=== PATIENT | female | born 1985 | race Asian ===

== ENCOUNTER → 2016-06-05 | Outpatient (CLI) | payer OTHER ==
[~2016-06-05] MED LIST: AMLO2.5T PO; CNC/54 PO; CYCL10TA6 PO; METH10TA4 PO
== END | disposition home or self-care (01) ==
LOC: C.PAPS 11:44
PROVIDERS: ATTEND Obstetrics & Gynecology
DX: Z01.419 Encounter for gynecological examination (general) (routine) without abnormal findings (principal)

== ENCOUNTER 2016-06-11 09:48 | Emergency (ER) | payer OTHER ==
[~2016-06-11] VITALS: Ht 154.9 cm; Wt 59.1 kg
[2016-06-11 09:50] VITALS: TEMP 36.9; Ht 154.9 cm; Wt 59.1 kg
--- NOTE | 2016-06-11 10:24 | DIAGNOSTIC IMAGING REPORT ---
CHEST ONE VIEW PORTABLE CLINICAL HISTORY: severe hypertension hypertension COMPARISON STUDY: No previous studies for comparison. FINDINGS: The bones soft tissues and hemidiaphragms are normal. The cardiomediastinal silhouette is normal. The lungs are clear. The pulmonary vasculature is normal. IMPRESSION: Negative chest. Electronically signed by: Phil Toth M.D. 06/11/2016 10:22 AM Dictated Date/Time: 06/11/2016 10:22 AM
[2016-06-11 10:31] VITALS: O2SAT 99
[2016-06-11 10:32] LABS: BASO % 0.2 %; BASO ABS # 0.01 K/uL (0-0.2); HEMATOCRIT 42.5 % (37-47); IG% 0.2 %; LYMPH % 35.4 %; LYMPH ABS # 1.79 K/uL (1.2-3.4); MEAN CELL VOLUME 72.3 fL (80-100); MEAN CORPUSCULAR HEMOGLOBIN 23.3 pg (25-34); MEAN CORPUSCULAR HGB CONC 32.2 g/dl (32-36); MEAN PLATELET VOLUME 9.5 fL (7.4-10.4); MONO % 7.9 %; NEUT % 55.3 %; PLATELET COUNT 317 K/uL (130-400); RED BLOOD COUNT 5.88 M/uL (4.2-5.4); WHITE BLOOD COUNT 5.05 K/uL (4.8-10.8)
[2016-06-11 10:34] LABS: URINE APPEARANCE CLEAR (CLEAR); URINE BILIRUBIN NEG (NEG); URINE COLOR YELLOW; URINE NITRITE NEG (NEG); URINE PH 7.5 (4.5-7.5); URINE SPECIFIC GRAVITY 1.013 (1.000-1.030); UROBILINOGEN NEG (NEG)
[2016-06-11 10:42] LABS: PROTHROMBIN TIME (PATIENT) 11.2 SECONDS (9.0-12.0)
[2016-06-11 10:44] LABS: MANUAL MICROSCOPIC REQUIRED? NO; REVIEW REQ? NO
[2016-06-11 10:46] LABS: ALT/SGPT 56 U/L (12-78); BLOOD UREA NITROGEN 11 mg/dl (7-18); BUN/CREATININE RATIO 14.7 (10-20); CALCIUM 8.3 mg/dl (8.5-10.1); CARBON DIOXIDE 27 mmol/L (21-32); CHLORIDE 101 mmol/L (98-107); CREATININE 0.74 mg/dl (0.60-1.20); GLUCOSE 99 mg/dl (70-99); POTASSIUM 3.4 mmol/L (3.5-5.1); SODIUM 139 mmol/L (136-145)
[2016-06-11] MEDS ORDERED: CNC/54 PO (10:52)
[2016-06-11] MEDS ORDERED: METH10TA4 PO (10:52)
[2016-06-11 10:54] LABS: ANISOCYTOSIS PRESENT; COMPLETE YES; POLYCHROMASIA 1+
[2016-06-11 10:57] LABS: ALKALINE PHOSPHATASE 56 U/L (45-117); AST/SGOT 51 U/L (15-37); CKMB/CK RATIO 0.5 (0-3.0)
[2016-06-11] MEDS ORDERED: AMLO2.5T PO (12:29)
[2016-06-11] MEDS ORDERED: AMLODIPINE BESYLATE 5 MG TAB PO ONE (12:30)
[2016-06-11 13:48] VITALS: BP 163/116; PULSE 92; O2SAT 100
--- NOTE | 2016-06-11 17:34 | EMERGENCY ROOM VISIT NOTE ---
History Report prepared by Xander: Alex Benavides Under the Supervision of: Dr. Dann Davies M.D. First contact with patient: 09:55 Chief Complaint: HYPERTENSION Stated Complaint: ELEVATED BP, VISION SLIGHTLY BLURRY History of Present Illness The patient is a 31 year old female who presents to the Emergency Room with complaints of persistent hypertension starting last week. She went to her [facility] for a routine appointment last week. She was told that she had high blood pressure and she could not be prescribed control. She was told to return the following week. When she went back to the [facility]SE INSPECTOR's office today, she was found to have hypertension again. She called her PCP's office who referred her to the Emergency Room. The patient currently denies any pain. The patient denies any prior history of hypertension. She does not have any family history of high blood pressure. She denies any recent changes in weight. Pt also denies LOC, headache, fevers, chills, diaphoresis, visual changes, neck pain, chest pain, breathing difficulties, nausea, vomiting, abdominal pain, back pain, melena, hematochezia, urinary symptoms, numbness, weakness, lymphadenopathy, rash, or other complaints. Source of History: patient Onset: last week Position: other (global) Symptom Intensity: No pain Quality: other (hypertension) Timing: other (persistent) Review of Systems See HPI for pertinent positives and negatives. A total of ten systems were reviewed and were otherwise negative. Past Medical & Surgical Medical Problems: (1) No Known Active Medical Problems Family History Patient reports no known family medical history. Social History Smoking Status: Never Smoker Marital Status: single Occupation Status: employed Current/Historical Medications Scheduled Amlodipine Besylate (Norvasc), 1 TAB PO DAILY Methylphenidate (Ritalin), 10 MG PO DAILY Methylphenidate Hcl (Concerta), 1 TAB PO QAM Allergies Coded Allergies: No Known Allergies (Unverified , 06/11/16) Physical Exam Vital Signs Date Time Temp Pulse Resp B/P Pulse Ox O2 Delivery O2 Flow Rate FiO2 06/11/16 13:48 92 18 163/116 100 06/11/16 13:17 95 16 150/122 96 Room Air 06/11/16 12:12 89 18 144/120 96 Room Air 06/11/16 11:08 96 06/11/16 11:07 87 20 155/108 99 Room Air 06/11/16 10:31 99 Room Air 06/11/16 10:31 99 Room Air 06/11/16 09:50 36.9 102 18 187/135 99 Room Air Physical Exam GENERAL: Awake, alert, well appearing, no distress HENT: Normocephalic, atraumatic. TM's normal. Oropharynx unremarkable. EYES: PERRL. EOMI. Normal conjunctiva. Sclera non-icteric. NECK: Supple. No nuchal rigidity. FROM. No JVD or bruit. RESPIRATORY: CTA CARDIAC: RRR. No murmur. ABDOMEN: Soft, non distended. No tenderness to palpation. No rebound or guarding. No masses. RECTAL: Deferred. MUSCULOSKELETAL: Unremarkable. No edema. No discoloration. Gross motor strength symmetric. NEURO: Cranial nerves 2-12 grossly intact. Normal sensorium. No sensory or motor deficits noted. Speech normal. No pronator drift. SKIN: No rash or jaundice noted. LYMPH: No adenopathy. Medical Decision & Procedures ER Provider Diagnostic Interpretation: X ray results as stated below per my interpretation and radiologist interpretation. CHEST ONE VIEW PORTABLE CLINICAL HISTORY: severe hypertension hypertension COMPARISON STUDY: No previous studies for comparison. FINDINGS: The bones soft tissues and hemidiaphragms are normal. The cardiomediastinal silhouette is normal. The lungs are clear. The pulmonary vasculature is normal. IMPRESSION: Negative chest. Electronically signed by: Phil Toth M.D. 06/11/2016 10:22 AM Dictated Date/Time: 06/11/2016 10:22 AM Laboratory Results 06/11/16 10:17 Red Blood Count 5.88, Mean Corpuscular Volume 72.3, Mean Corpuscular Hemoglobin 23.3, Mean Corpuscular Hemoglobin Concent 32.2, Mean Platelet Volume 9.5, Neutrophils (%) (Auto) 55.3, Lymphocytes (%) (Auto) 35.4, Monocytes (%) (Auto) 7.9, Eosinophils (%) (Auto) 1.0, Basophils (%) (Auto) 0.2, Neutrophils # (Auto) 2.79, Lymphocytes # (Auto) 1.79, Monocytes # (Auto) 0.40, Eosinophils # (Auto) 0.05, Basophils # (Auto) 0.01 06/11/16 10:17 Test 06/11/16 10:17 White Blood Count 5.05 K/uL (4.8-10.8) Red Blood Count 5.88 M/uL (4.2-5.4) Hemoglobin 13.7 g/dL (12.0-16.0) Hematocrit 42.5 % (37-47) Mean Corpuscular Volume 72.3 fL (80-100) Mean Corpuscular Hemoglobin 23.3 pg (25-34) Mean Corpuscular Hemoglobin Concent 32.2 g/dl (32-36) Platelet Count 317 K/uL (130-400) Mean Platelet Volume 9.5 fL (7.4-10.4) Neutrophils (%) (Auto) 55.3 % Lymphocytes (%) (Auto) 35.4 % Monocytes (%) (Auto) 7.9 % Eosinophils (%) (Auto) 1.0 % Basophils (%) (Auto) 0.2 % Neutrophils # (Auto) 2.79 K/uL (1.4-6.5) Lymphocytes # (Auto) 1.79 K/uL (1.2-3.4) Monocytes # (Auto) 0.40 K/uL (0.11-0.59) Eosinophils # (Auto) 0.05 K/uL (0-0.5) Basophils # (Auto) 0.01 K/uL (0-0.2) RDW Standard Deviation 35.2 fL (36.4-46.3) RDW Coefficient of Variation 13.4 % (11.5-14.5) Immature Granulocyte % (Auto) 0.2 % Immature Granulocyte # (Auto) 0.01 K/uL (0.00-0.02) Polychromasia 1+ Anisocytosis PRESENT Prothrombin Time 11.2 SECONDS (9.0-12.0) Prothromb Time International Ratio 1.0 (0.9-1.1) Activated Partial Thromboplast Time 25.6 SECONDS (21.0-31.0) Partial Thromboplastin Ratio 1.0 Urine Color YELLOW Urine Appearance CLEAR (CLEAR) Urine pH 7.5 (4.5-7.5) Urine Specific [place] 1.013 (1.000-1.030) Urine Protein NEG (NEG) Urine Glucose (UA) NEG (NEG) Urine Ketones NEG (NEG) Urine Occult Blood NEG (NEG) Urine Nitrite NEG (NEG) Urine Bilirubin NEG (NEG) Urine Urobilinogen NEG (NEG) Urine Leukocyte Esterase NEG (NEG) Urine Test NEG (NEG) Anion Gap 11.0 mmol/L (3-11) Est Creatinine Clear Calc Drug Dose 92.6 ml/min Estimated GFR () 126.9 Estimated GFR (Non- 109.5 BUN/Creatinine Ratio 14.7 (10-20) Calcium Level 8.3 mg/dl (8.5-10.1) Total Bilirubin 0.5 mg/dl (0.2-1) Direct Bilirubin 0.1 mg/dl (0-0.2) Aspartate Amino Transf (AST/SGOT) 51 U/L (15-37) Alanine Aminotransferase (ALT/SGPT) 56 U/L (12-78) Alkaline Phosphatase 56 U/L (45-117) Total Creatine Kinase 180 U/L (26-192) Creatine Kinase MB 0.9 ng/ml (0.5-3.6) Creatine Kinase MB Ratio 0.5 (0-3.0) Troponin I < 0.015 ng/ml (0-0.045) Total Protein 8.1 gm/dl (6.4-8.2) Albumin 4.0 gm/dl (3.4-5.0) Lipase 174 U/L (73-393) Thyroid Stimulating Hormone (TSH) 3.310 uIu/ml (0.300-4.500) Laboratory results reviewed by me Medications Administered Medications (Trade) Dose Ordered Sig/Angélica Route Start Time Stop Time Status Last Admin Dose Admin Amlodipine Besylate (Norvasc Tab) 2.5 mg NOW ONCE PO 06/11/16 12:30 06/11/16 12:31 DC 06/11/16 12:34 2.5 MG ECG Indication: other (Hypertension) Rate (beats per minute): 86 Rhythm: sinus with SA Findings: no acute ischemic change, no ectopy ED Course 0955: The patient was evaluated in room B10. A complete history and physical exam was performed. 1215: I reevaluated the patient who is asymptomatic. 1225: I discussed the patient's case with Dr. Johnson, primary care physician with [facility]. 1230: Norvasc Tab 2.5 mg PO. I reevaluated the patient. Discussed results and discharge instructions: She verbalized understanding and agreement. The patient is ready for discharge. Medical Decision Prior records/ancillary studies reviewed regarding the history above. Triage Nursing notes reviewed and agree them. Additional history obtained from the family. The patient's history was concerning for hypertension. Differential diagnosis: Etiologies such as a symptomatic hypertension,hypertensive emergency, cardiovascular pathology, pheochromocytoma, electrolyte abnormality, renal disease, endorgan damage, as well as others were entertained. Physical examination: As above. Nonfocal. Fundi normal. ER treatment provided: [] On reassessment the patient felt better. Diagnostic interpretation by me: The electrocardiogram was negative for pathologic change. The labs revealed negative CBC, urinalysis, test, chemistry panel, LFTs, cardiac markers, and TSH. Minimal elevation of AST. Imaging studies: Chest x-ray as above Consultation: A consultation was placed with the patient's primary physician, Dr. Kelly Johnson. We reviewed the patient's history, blood pressures, and her presentation with diagnostic results. It was felt that initiation of a low- dose Norvasc with close outpatient follow-up and outpatient blood pressure monitoring would be most appropriate as she is a symptomatically at this time. I discussed this with the patient and she was in agreement. Risks and benefits were discussed. Side effects of medication were discussed. I gave my usual and customary discussion regarding this issue. By the evaluation outlined above emergent etiologies such as hypertensive emergency, pheochromocytoma, endorgan damage, cardiac ischemia, aortic dissection, pulmonary embolism, pneumonia, pneumothorax, infections, gastrointestinal, as well as others were deemed relatively unlikely. The patient was informed about the findings as listed above. All questions were answered and she was pleased with the treatment. Return instructions were outlined and the patient was discharged in stable condition. Outpatient prescription management: Norvasc 2.5 mg daily Referral: The patient was referred back to her primary care physician for follow-up in 2 to 3 days for a recheck of the current condition. The chart was completed utilizing [employer] voice recognition software. Grammatical errors, random word insertions, pronoun errors, and incomplete sentences are an occasional consequence of this system due to software limitations, ambient noise, and hardware issues. Any formal questions or concerns about the content, text, or information contained within the body of this dictation should be directly addressed to the physician for clarification. Consults Time Called: 1211 Consulting Physician: Dr. Johnson, primary care physician with [facility] Returned Call: [phone] I discussed the patient's case with Dr. Johnson, primary care physician with [facility]. Impression Primary Impression: Hypertension Scribe Attestation The scribe's documentation has been prepared under my direction and personally reviewed by me in its entirety. I confirm that the note above accurately reflects all work, treatment, procedures, and medical decision making performed by me. Departure Information Dispostion Home / Self-Care Prescriptions Amlodipine Besylate (NORVASC) 2.5 Mg Tab 1 TAB PO DAILY for 30 Days, #30 TAB Prov: Dann Davies MD 06/11/16 Referrals No Doctor, Assigned (PCP) Forms HOME CARE DOCUMENTATION FORM, IMPORTANT VISIT INFORMATION, WORK / SCHOOL INSTRUCTIONS Patient Instructions [facility] Additional Instructions Diagnosis: 1. Hypertension Rest and drink plenty of fluids as tolerated. Start Norvasc 2.5 mg daily for your blood pressure. Review the package insert for all your medications. This is necessary as important health information is provided for your benefit and current care. Avoid strenuous activities until cleared by your primary doctor. Obtain a blood pressure cuff from the pharmacy and record her blood pressure 2- 3 times a day for your primary doctor. Return to the ER immediately for persistent chest pain, abdominal pain, headache , visual changes, vomiting, fevers, chest pains, difficulty breathing, worsening of your condition, or as needed. Dr. Johnson is aware and the office should contact you within the next 24 hours. If you do not hear from them by tomorrow afternoon call the office for the follow up appointment.
== END 2016-06-11 13:54 | disposition home or self-care (01) ==
LOC: C.EDB 09:50
DX: I10 Essential (primary) hypertension (principal); Z79.899 Other long term (current) drug therapy

== ENCOUNTER 2016-06-17 06:40 | Emergency (ER) | payer OTHER ==
[~2016-06-17] VITALS: Ht 154.9 cm; Wt 59.7 kg
[~2016-06-17 06:40] MED LIST changes: -CYCL10TA6 PO
[2016-06-17 06:45] VITALS: BP 161/106; TEMP 36.7; O2SAT 98; Ht 154.9 cm; Wt 59.7 kg
[2016-06-17 07:25] VITALS: PULSE 83
[2016-06-17] MEDS ORDERED: CYCL10TA6 PO (07:28)
[2016-06-17] MEDS ORDERED: FLEXERIL HOME PACK 10 MG VIAL PO ONE (07:30)
--- NOTE | 2016-06-17 07:37 | EMERGENCY ROOM VISIT NOTE ---
History First contact with patient: 07:01 Chief Complaint: NECK PAIN Stated Complaint: PAIN RT SIDE OF HEAD/NECK,CAN'T TURN TO SIDE History of Present Illness The patient is a 31 year old female who presents to the Emergency Room with complaints of neck pain upon awakening this morning. The patient reports that the pain is mostly right-sided. The patient usually sleeps in a position. She denies any other recent illnesses or trauma to the neck. The patient was here recently for hypertension. She is currently taking Norvasc 2.5 mg daily. She reports keeping a blood pressure journal, and states that her pressures have been running lower, however are still in the 140s to 150s systolic. She denies any chest pain, shortness of breath or pain extending into the back. Movement currently worsens or neck pain. She denies headache or blurred vision. She rates her discomfort a 9 out of 10. Review of Systems 10 system review was performed and was negative except for pertinent positives and negatives as indicated in history of present illness Past Medical/Surgical History Medical Problems: (1) No Known Active Medical Problems Hypertension Family History Patient reports no known family medical history. Social History Smoking Status: Never Smoker Alcohol Use: occasionally Marital Status: single Occupation Status: employed Current/Historical Medications Scheduled Amlodipine Besylate (Norvasc), 1 TAB PO DAILY Cyclobenzaprine Hcl (Flexeril), 10 MG PO TID Methylphenidate (Ritalin), 10 MG PO DAILY Methylphenidate Hcl (Concerta), 1 TAB PO QAM Allergies Coded Allergies: No Known Allergies (Unverified , 06/11/16) Physical Exam Vital Signs Date Time Temp Pulse Resp B/P Pulse Ox O2 Delivery O2 Flow Rate FiO2 06/17/16 07:25 83 06/17/16 06:45 36.7 100 16 161/106 98 Room Air Physical Exam CONSTITUTIONAL: Healthy and well nourished. Alert and oriented X 3 with positive affect. Patient appears in mild to moderate discomfort. She limits movement of the neck. HEENT: Normocephalic, atraumatic. Pupils equal, round and reactive. OROPHARYNX: No posterior pharyngeal erythema, tonsillar hypertrophy or exudates. NECK: Examination shows tenderness to palpation of the right paraspinous muscle , trapezius and, to a smaller extent, sternocleidomastoid muscle. No tenderness to palpation through the trapezius region. No focal tenderness to the central cervical spine. RESPIRATORY: Clear to auscultation bilaterally with no wheezing, crackles, rhonchi or stridor. CARDIOVASCULAR: Regular rate and rhythm with no murmurs, rubs or gallops. GASTROINTESTINAL: Bowel sounds present in all quadrants. Nontender to palpation. MUSCULOSKELETAL: Full range of motion of the shoulders without discomfort. Equal wedger and gluer strength bilaterally. INTEGUMENTARY: No rash or other significant dermatologic conditions noted. NEUROLOGIC: No focal neurologic deficits noted. Upper extremities are sensory intact. Medical Decision & Procedures ED Course Patient history and physical exam were performed. Nurse's notes were reviewed. Clinical exam and history are most consistent with cervical spasm. A soft collar was applied. The patient was provided a home pack and prescription for Flexeril. She was encouraged to alternate ibuprofen and Tylenol for pain. The patient was instructed to increase her Norvasc dosing to 5 mg daily. The patient reports that she has called her PCP's office and cannot get an appointment for over a month. She was encouraged to call the office again and tell them that she was referred from the emergency department, and continues to have elevated blood pressures. If she has any further problems, she was encouraged to call the emergency department, and one of our [employer] can make a phone call for her as well. The patient voiced understanding of all discharge instructions, and rated her pain a 6 out of 10 at the time of discharge. Medical Decision Impression Primary Impression: Cervical paraspinous muscle spasm Additional Impression: Hypertension Departure Information Dispostion Home / Self-Care Prescriptions Cyclobenzaprine Hcl (FLEXERIL) 10 Mg Tab 10 MG PO TID for spasm, #10 TAB Prov: Maycol Lu PA 06/17/16 Forms HOME CARE DOCUMENTATION FORM, IMPORTANT VISIT INFORMATION Patient Instructions [facility] Additional Instructions Intermittently apply heat to neck. Wear soft collar for additional relief. Flexeril as needed for spasm. Do not drink or drive while taking Flexeril. Ibuprofen 600 mg and/or Tylenol 1000 mg every 8 hours. You may also alternate these medications for more effective pain relief: Ibuprofen --4 HRS--> Tylenol --4 HRS--> ibuprofen --4 HRS--> Tylenol .... Take Norvasc 5 mg daily. Family doctor's office and tell them that you were referred from the emergency department for hypertension, and that Dr. Duong is aware of your condition. Your blood pressure today is 161/106. Problem Qualifiers Additional Impression: Hypertension Hypertension type: essential hypertension Qualified Codes: I10 - Essential ( primary) hypertension
== END 2016-06-17 07:42 | disposition home or self-care (01) ==
LOC: C.EDB 06:41
DX: M62.838 Other muscle spasm (principal); I10 Essential (primary) hypertension; Z79.899 Other long term (current) drug therapy